=== PATIENT | female | born 2000 | race Caucasian/White ===

== ENCOUNTER 2020-09-16 01:40 | Emergency (ER) | payer OTHER ==
[~2020-09-16] VITALS: Ht 162.6 cm; Wt 72.6 kg
[2020-09-16 01:53] VITALS: Ht 162.6 cm; Wt 72.6 kg
[2020-09-16 03:12] LABS: AMPHETAMINE QUAL UR NONE DETECTED (See below)
[2020-09-16 05:31] VITALS: BP 106/66
== END 2020-09-16 05:31 | disposition home or self-care (01) ==
LOC: ED 01:40
PROVIDERS: Emergency Medicine
DX: F10.129 Alcohol abuse with intoxication, unspecified (principal)
CPT/HCPCS: G0480; J7030